=== PATIENT | female | born 1995 | race Caucasian/White ===

== ENCOUNTER 2017-05-23 21:30 | Emergency (ER) | payer OTHER ==
[2017-05-23 21:47] VITALS: BP 88/55; PULSE 102; RESP 18; TEMP 99.1; O2SAT 99; BMI 30.1
[2017-05-23 23:19] LABS: ALB/GLOB RATIO 1.8 (1.1-1.8); ALKALINE PHOSPHATASE 66 U/L (38-126); ALT/SGPT 19 U/L (7-56); AST/SGOT 22 U/L (14-36); BILIRUBIN,TOTAL 0.4 mg/dL (0.2-1.3); BLOOD UREA NITROGEN 11 mg/dL (7-21); CALCIUM 9.5 mg/dL (8.4-10.5); CARBON DIOXIDE 26 mmol/L (21-33); CHLORIDE 104 mmol/L (98-107); GFR AFRICAN-AMERICAN > 60; GLUCOSE,RANDOM 96 mg/dL (70-110); SODIUM 140 mmol/L (132-148); TOTAL PROTEIN 6.7 g/dL (5.8-8.3)
[2017-05-23 23:28] LABS: BASO # 0.03 K/mm3 (0.0-2.0); BASO % 0.3 % (0.0-3.0); EOS % 0.1 % (1.5-5.0); GRAN # 8.01 (1.4-6.5); GRAN % 81.2 % (50.0-68.0); HEMATOCRIT 35.7 % (36.0-48.0); LYMPH % 10.1 % (22.0-35.0); MEAN CELL VOLUME 89.7 fl (80.0-105.0); MEAN CORPUSCULAR HEMOGLOBIN 30.9 pg (25.0-35.0); MEAN CORPUSCULAR HGB CONC 34.5 g/dl (31.0-37.0); MEAN PLATELET VOLUME 9.1 fl (7.0-11.0); MONO # 0.8 (0.1-0.6); MONO % 8.3 % (1.0-6.0); RED CELL DISTRIBUTION WIDTH 11.7 % (11.5-14.5); WHITE BLOOD COUNT 9.9 10^3/ul (4.5-11.0)
[2017-05-23 23:31] LABS: TROPONIN I < 0.01 ng/mL
--- NOTE | 2017-05-23 23:56 | ED PDOC ---
Arrival/HPI - General Historian: Patient, Parent (mother) <Vince Limon - Last Filed: 05/24/17 00:01> <Mynor King - Last Filed: 05/24/17 01:39> - General Chief Complaint: Chest Pain Time Seen by Provider: 05/23/17 22:04 - History of Present Illness Narrative History of Present Illness (Text): 05/23/17 23:53 21 year old female with past medical history of recurrent strep infections presents to the ED with chest tightness and dizziness. Patient reports that she started to get a runny nose and headache last night. She took Tylenol but it did not help. Tonight while patient was taking a shower, she felt like the room was spinning. She got out of the shower and laid down on the ground. The spinning quickly resolved when she laid down on the ground. Patient states that she began to feel tightness in her chest, but only when she attempted to take a deep breath. Her mother decided to bring her into the emergency room because she was concerned about the tightness in her chest. Denies f/c, n/v, d/c, cp, syncope, numbness or tingling. (Vince Limon) Past Medical History - Provider Review Nursing Documentation Reviewed: Yes - Past History Past History: No Previous - Infectious Disease Hx of Infectious Diseases: None - Tetanus Immunization Tetanus Immunization: Up to Date - Past Medical History Past Medical History: No Previous - Psychiatric Hx Depression: No Hx Emotional Abuse: No Hx Physical Abuse: No Hx Substance Use: No - Past Surgical History Past Surgical History: No Previous - Anesthesia Hx Anesthesia: No - Suicidal Assessment Feels Threatened In Home Enviroment: No <Vince Limon - Last Filed: 05/24/17 00:01> Family/Social History - Physician Review Nursing Documentation Reviewed: Yes Family/Social History: Unknown Family HX Smoking Status: Never Smoked Hx Alcohol Use: No Hx Substance Use: No Hx Substance Use Treatment: No <Vince Limon - Last Filed: 05/24/17 00:01> Allergies/Home Meds <Vince Limon - Last Filed: 05/24/17 00:01> <Mynor King - Last Filed: 05/24/17 01:39> Allergies/Adverse Reactions: Allergies No Known Allergies Allergy (Verified 05/23/17 21:49) Review of Systems - Physician Review All systems were reviewed & negative as marked: Yes - Review of Systems Constitutional: Normal. absent: Fevers Eyes: Normal. absent: Vision Changes ENT: Rhinorrhea, Sinus Congestion. absent: Sore Throat Respiratory: SOB (tightness with deep inspiration), Cough, Sputum (white). absent: Wheezing Cardiovascular: Normal. absent: Chest Pain, Palpitations, Edema, Syncope Gastrointestinal: Normal. absent: Abdominal Pain, Constipation, Diarrhea, Nausea, Vomiting Genitourinary Female: Normal. absent: Dysuria, Frequency Musculoskeletal: Normal Skin: Normal. absent: Rash Neurological: Headache, Dizziness Hemo/Lymphatic: Adenopathy (cervical (hx of recurrent strep)) Psychiatric: Normal <Vince Limon - Last Filed: 05/24/17 00:01> Physical Exam Vital Signs Reviewed: Yes Temperature: Afebrile Blood Pressure: Hypotensive (retaken during exam, BP 110/64) Pulse: Tachycardic (Pulse of 88 during exam) Respiratory Rate: Normal Appearance: Positive for: Well-Appearing, Non-Toxic, Comfortable Pain Distress: None Mental Status: Positive for: Alert and Oriented X 3 - Systems Exam Head: Present: Atraumatic, Normocephalic Pupils: Present: PERRL Extroacular Muscles: Present: EOMI Conjunctiva: Present: Normal Mouth: Present: Moist Mucous Membranes Nose (External): Present: Atraumatic. No: Abrasion Nose (Internal): Present: No Active Bleeding, Moist, Clear Mucous, Rhinorrhea. No: Engorged Neck: Present: Normal Range of Motion. No: Meningeal Signs, MIDLINE TENDERNESS , JVD Respiratory/Chest: Present: Clear to Auscultation. No: Respiratory Distress, Accessory Muscle Use, Wheezes, Rales, Retracting, Rhonchi, Tachypneic, Tender to Palpation Cardiovascular: Present: Regular Rate and Rhythm, Normal S1, S2. No: Tachycardic Abdomen: Present: Tenderness, Normal Bowel Sounds. No: Distention, Peritoneal Signs, Guarding Back: Present: Normal Inspection. No: CVA Tenderness, Midline Tenderness, Paraspinal Tenderness Upper Extremity: Present: Normal Inspection, Normal ROM, NORMAL PULSES, Capillary Refill < 2s. No: Edema Lower Extremity: Present: Normal Inspection, NORMAL PULSES, Capillary Refill < 2 s. No: Edema, CALF TENDERNESS, Tenderness Neurological: Present: GCS=15, Speech Normal, Motor Func Grossly Intact Skin: Present: Warm, Dry, Normal Color. No: Diaphoretic Psychiatric: Present: Alert, Oriented x 3, Normal Insight, Normal Concentration <Vince Limon - Last Filed: 05/24/17 00:01> Medical Decision Making <Vince Limon - Last Filed: 05/24/17 00:01> <Mynor King - Last Filed: 05/24/17 01:39> ED Course and Treatment: 05/24/17 00:39 Chest Tightness with Deep Inspiration - CXR - unremarkable, no acute disease - EKG - NSR @ 98bpm, normal axis, normal ekg - CBC - unremarkable - CMP - unremarkable DISPO: Home with prescriptions for Ivy-D and Z-pack (5days) for bronchitis. Patient is instructed to follow up with Primary Care Physician. Please return to hospital if experiencing new/worsening symptoms. (Vince Limon) 05/24/17 01:00 Pt. was seen and evaluated with the medical office asst.Agree with HPI,clinical findings,evaluation and treatment plan. (Mynor King) - Lab Interpretations Lab Results: 05/23/17 22:58 05/23/17 22:58 Lab Results 05/23/17 22:58: Sodium 140, Potassium 4.0, Chloride 104, Carbon Dioxide 26, Anion Gap 14, BUN 11, Creatinine 0.7, Est GFR ( Amer) > 60, Est GFR (Non- Af Amer) > 60, Random Glucose 96, Calcium 9.5, Total Bilirubin 0.4, AST 22, ALT 19, Alkaline Phosphatase 66, Lactate Dehydrogenase 462, Total Creatine Kinase 68 , Troponin I < 0.01, Total Protein 6.7, Albumin 4.3, Globulin 2.4, Albumin/ Globulin Ratio 1.8 05/23/17 22:58: WBC 9.9 D, RBC 3.98, Hgb 12.3, Hct 35.7 L, MCV 89.7, MCH 30.9, MCHC 34.5, RDW 11.7, Plt Count 322, MPV 9.1, Gran % 81.2 H, Lymph % (Auto) 10.1 L, Wilcox % (Auto) 8.3 H, Eos % (Auto) 0.1 L, Baso % (Auto) 0.3, Gran # 8.01 H, Lymph # 1.0 L, Wilcox # 0.8 H, Eos # 0.0, Baso # 0.03 - RAD Interpretation Radiology Orders: 05/23/17 22:27 CHEST PORTABLE [RAD] Stat - PA / WHITE SOURER / Resident Statement / has reviewed & agrees with the documentation as recorded. / has examined the patient and agrees with the treatment plan. <Mynor King - Last Filed: 05/24/17 01:39> Disposition/Present on Arrival - Present on Arrival Any Indicators Present on Arrival: No History of DVT/PE: No History of Uncontrolled Diabetes: No Urinary Catheter: No History of Decub. Ulcer: No History Surgical Site Infection Following: None - Disposition Have Diagnosis and Disposition been Completed?: Yes Disposition Time: 11:55 Patient Plan: Discharge <Vince Limon - Last Filed: 05/24/17 00:01> <Mynor King - Last Filed: 05/24/17 01:39> - Disposition Diagnosis: Bronchitis, URI (upper respiratory infection) Disposition: HOME/ ROUTINE Condition: GOOD Discharge Instructions (ExitCare): Upper Respiratory Infection (ED), Acute Bronchitis (ED) Prescriptions: Fexofenadine/Pseudoephedrine [Ivy-D 12 Hour Tablet] 1 each PO BID PRN #24 tab.er.12h PRN Reason: Nasal Congestion Azithromycin [Zithromax] 250 mg PO DAILY #6 tab Referrals: Ophelia Henderson MD [Primary Care Provider] - Follow up with primary Forms: [employer] (Mauritian)
--- NOTE | 2017-05-24 09:21 | RAD ---
HISTORY: sob COMPARISON: No prior. FINDINGS: LUNGS: No active pulmonary disease. PLEURA: No significant pleural effusion identified, no pneumothorax apparent. CARDIOVASCULAR: Normal. OSSEOUS STRUCTURES: No significant abnormalities. VISUALIZED UPPER ABDOMEN: Normal. OTHER FINDINGS: None. IMPRESSION: No active disease.
--- NOTE | 2017-05-24 17:54 | CARD ---
APPROVED REPORT EKG Measurement Heart [id number] <Conclusion> Normal sinus rhythm Normal ECG
== END 2017-05-24 00:12 | disposition home or self-care (01) ==
LOC: ED 21:30
DX: J40 Bronchitis, not specified as acute or chronic (principal); J06.9 Acute upper respiratory infection, unspecified

== ENCOUNTER 2019-01-01 12:15 | Emergency (ER) | payer OTHER ==
[2019-01-01 12:15] VITALS: BMI 30.1
[2019-01-01 12:41] VITALS: RESP 18; TEMP 98.6
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
[2019-01-01 15:08] VITALS: BP 123/64; PULSE 87; O2SAT 99
== END 2019-01-01 15:07 | disposition home or self-care (01) ==
LOC: ED 12:15
DX: M54.2 Cervicalgia (principal); V43.62XA Car passenger injured in collision with other type car in traffic accident, initial encounter; Y92.410 Unspecified street and highway as the place of occurrence of the external cause